=== PATIENT | female | born 1995 | race Caucasian/White ===

== ENCOUNTER 2017-03-21 18:22 | Emergency (ER) | payer BC ==
[~2017-03-21] VITALS: Ht 175.3 cm; Wt 59.5 kg
[2017-03-21 18:24] VITALS: TEMP 36.7; Ht 175.3 cm; Wt 59.5 kg
[2017-03-21] MEDS ORDERED: TRAMADOL HCL 50 MG TAB PO STA (18:33)
[2017-03-21] MEDS ORDERED: ACETAMINOPHEN 500 MG TAB PO STA (18:33)
[2017-03-21] MEDS ORDERED: CITA10TA8 PO (18:39)
--- NOTE | 2017-03-21 19:13 | DIAGNOSTIC IMAGING REPORT ---
R FOOT MIN 3 VIEWS ROUTINE CLINICAL HISTORY: Right ankle and foot injury. COMPARISON: None FINDINGS: Tarsometatarsal joints are intact. There is no acute fracture within the right foot. There is a bipartite medial sesamoid of the right first toe. IMPRESSION: No acute fracture or dislocation within the right foot. Electronically signed by: Win Sawyer M.D. 03/21/2017 7:11 PM Dictated Date/Time: 03/21/2017 7:09 PM
--- NOTE | 2017-03-21 19:14 | DIAGNOSTIC IMAGING REPORT ---
R ANKLE MIN 3 VIEWS ROUTINE CLINICAL HISTORY: Right ankle and foot pain following injury. COMPARISON: None FINDINGS: Alignment of the right ankle is anatomic. There is no acute fracture. There is marked lateral ankle soft tissue swelling. Talar dome is intact. IMPRESSION: 1. No acute fracture or dislocation of the right ankle. 2. Marked lateral ankle soft tissue swelling. Electronically signed by: Win Sawyer M.D. 03/21/2017 7:12 PM Dictated Date/Time: 03/21/2017 7:12 PM
--- NOTE | 2017-03-21 19:31 | EMERGENCY ROOM VISIT NOTE ---
History First contact with patient: 18:27 Chief Complaint: ANKLE PAIN Stated Complaint: HURT R ANKLE History of Present Illness The patient is a 21 year old female who presents to the Emergency Room with complaints of right ankle and foot pain. The patient reports twisting her ankle and foot last night when the heel of her high-heeled shoes snapped off while walking. She denies any pain radiating into the leg, and denies any paresthesias or numbness of the right foot or toes. She denies any prior history of right ankle or foot injuries, and rates her discomfort an 8 out of 10 with weightbearing. The patient did take ibuprofen 600 mg around 11 AM. Review of Systems 10 system review was performed and was negative except for pertinent positives and negatives as indicated in history of present illness Past Medical/Surgical History Medical Problems: (1) No significant past medical history Surgical Problems: (1) No history of previous surgery Family History No significant family history Social History Smoking Status: Never Smoker Alcohol Use: occasionally Marital Status: single Housing Status: lives with roommate Occupation Status: [employer] Current/Historical Medications Scheduled Citalopram Hydrobromide (Celexa), 1 PO DAILY Physical Exam Vital Signs Date Time Temp Pulse Resp B/P (MAP) Pulse Ox O2 Delivery O2 Flow Rate FiO2 03/21/17 18:24 36.7 93 20 95/56 95 Room Air Physical Exam CONSTITUTIONAL: Healthy and well nourished. Alert and oriented X 3 with positive affect. Patient does not appear in any acute distress. HEENT: Normocephalic, atraumatic. Pupils equal, round and reactive. NECK: Full active range of motion without discomfort. MUSCULOSKELETAL: Examination of the right lower extremity shows lateral ankle edema, with tenderness to palpation over the lateral malleolus and ligament. She also has mild tenderness over the medial malleolus and deltoid ligament. Negative anterior draw. She has tenderness across the dorsal midfoot and base of the middle metatarsals. She has mildly worsening discomfort with subtalar motion. No focal tenderness to palpation of the phalanges, calcaneus or Achilles tendon. Pedal pulses are intact. INTEGUMENTARY: No rash or other significant dermatologic conditions noted. NEUROLOGIC: Right foot and toes are sensory intact. Medical Decision & Procedures ER Provider Diagnostic Interpretation: My interpretation of right ankle and foot x-rays does not show any obvious fractures, dislocation or ankle mortise asymmetry. Radiologist reports were also reviewed with concurrence. Medications Administered Medications (Trade) Dose Ordered Sig/Guillermo Route Start Time Stop Time Status Last Admin Dose Admin Acetaminophen (Tylenol Tab) 1,000 mg NOW STAT PO 03/21/17 18:33 218 18:34 DC 03/21/17 18:59 1,000 MG Tramadol HCl (Ultram Tab) 50 mg ONE STAT PO 03/21/17 18:33 218 18:34 DC 03/21/17 18:59 50 MG ED Course Patient history and physical exam were performed. Nurse's notes were reviewed. Vital signs were reviewed. The patient was administered Tylenol and Ultram for pain. An ice pack was also applied. X-rays of the right ankle and foot were normal. The patient was dispensed crutches. She was encouraged to intermittently apply ice and elevate the foot and ankle for swelling and pain. Ibuprofen and Tylenol in alternating fashion as needed for additional pain relief. Follow-up with orthopedics if symptoms are not improving within the next week. The patient was happy with plan of care, voiced understanding of all discharge instructions, and denied any significant discomfort at the conclusion of my exam. Medical Decision Medication Reconcilliation Current Medication List: was personally reviewed by me Blood Pressure Screening Patient's blood pressure: Normal blood pressure Impression Primary Impression: Right ankle sprain Departure Information Patient Instructions My [facility] Health Problem Qualifiers Primary Impression: Right ankle sprain Encounter type: initial encounter Involved ligament of ankle: unspecified ligament Qualified Codes: S93.401A - Sprain of unspecified ligament of right ankle, initial encounter
[2017-03-21 19:33] VITALS: BP 104/68; PULSE 74; O2SAT 100
== END 2017-03-21 19:35 | disposition home or self-care (01) ==
LOC: C.EDB 18:24 → C.EDD 19:35
DX: S93.401A Sprain of unspecified ligament of right ankle, initial encounter (principal); Z79.899 Other long term (current) drug therapy; X50.1XXA Overexertion from prolonged static or awkward postures, initial encounter